=== PATIENT | female | born 1985 | race Caucasian/White ===

== ENCOUNTER → 2024-02-13 13:24 | Outpatient (CLI) | payer OTHER, SELFPAY ==
--- NOTE | 2024-02-13 13:27 | DI.RAD.S_ITS ---
PROCEDURE: XR KNEE RT 3V INDICATIONS: chronic R knee TECHNIQUE: 3 views of the knee were acquired. COMPARISON: None. FINDINGS: Bones: No fractures or dislocations. No suspicious bony lesions. Soft tissues: No joint effusion. No suspicious soft tissue calcifications. IMPRESSION: No acute bony abnormality or significant effusion. Dictated by: Gabriele Mcnally M.D. on 02/13/2024 at 14:21 Approved by: Gabriele Mcnally M.D. on 02/13/2024 at 14:22
== END ==
LOC: RAD 13:27
PROVIDERS: PCP Family Medicine; Referring Provider Family Medicine; Visit Provider Family Medicine
DX: M25.561 Pain in right knee (principal); G89.29 Other chronic pain
CPT/HCPCS: 73562